=== PATIENT | female | born 1955 | race African-American/Black ===

== ENCOUNTER 2019-02-18 17:45 | Inpatient (IN) | payer MEDICAID, MEDICARE, OTHER ==
[~2019-02-18] VITALS: Ht 167.6 cm; Wt 72.6 kg
--- NOTE | 2019-02-18 18:40 | NUR ---
PT REFUSING BLOOD DRAW AND REFUSING TO PROVIDE URINE
--- NOTE | 2019-02-18 18:58 | NUR ---
REPORT GIVEN TO SHANNAN ANDERSON FOR JESSE
--- NOTE | 2019-02-18 19:10 | NUR ---
GPS/DOLLY DRIVER NOTES: ADMITTED [facility] TO [place] [facility] A 63 YEAR OLD FEMALE, BROUGHT IN BY ER STAFF AROUND 1910 VIA WHEELCHAIR. PATIENT IS ADMITTED ON 5150 HOLD FOR DTS/DTO/GD. PLACED PATIENT IN HER ROOM, PATIENT IS A/O X4, AMBULATORY, RESPIRATION EVEN, BREATHING PATTERN NON-LABORED, NO APPARENT DISTRESS NOTED. SHOWS NO S/S OF ANY PAIN OR DISCOMFORT. PATIENT IS VERY UNCOOPERATIVE, AGITATED, UNPREDICTABLE, YELLS AT STAFF, APPEARS DISHEVELED, UNKEMPT, MALODOROUS, POR HYGIENE REFUSED TO TAKE SHOWER, REFUSED SKIN ASSESSMENT, REFUSED PHOTO TAKEN. LIVES ALONE, NO RELATIVE TO BE NOTIFIED FO HER ADMISSION TO THE UNIT. PATIENT IS UNDER THE PSYCHIATRIC CARE OF DR. VAZQUEZ AND MEDICAL CARE OF LINDA RAYMUNDO. BELONGINGS INVENTORIED AND CHECKED FOR CONTRABAND. CHECKED FOR ENVIRONMENTAL SAFETY. PATIENT HAS NO MEDICATIONS, PATIENT IS HOMELESS. POLICE FOUND HER AND WAS TAKEN TO [facility]. BED LOCKED AND PLACED ON LOWEST POISTION FOR SAFETY. MRSA SCREEN DONE IN ER. WILL CONTINUE TO MONITOR Q 15 MINS. FOR SAFETY.
[2019-02-18] MEDS ORDERED: MAGNESIUM HYDROXIDE 30 ML UDC PO PRN (20:30)
[2019-02-18] MEDS ORDERED: ZOLPIDEM TARTRATE 5 MG TABLET PO PRN (20:30)
[2019-02-18] MEDS ORDERED: MAG HYDROX/AL HYDROX/SIMETH 30 ML UDC PO PRN (20:30)
[2019-02-18] MEDS ORDERED: ACETAMINOPHEN 325 MG TABLET PO PRN (20:30)
--- NOTE | 2019-02-18 23:15 | NUR ---
OFFERED PATIENT A SLEEPING PILL, PATIENT SAID, " I DON'T TAKE SLEEPING PIL."
--- NOTE | 2019-02-19 06:50 | NUR ---
REFUSED BLOOD DRAW, WILL COME BACK LATER.
[2019-02-19] MEDS ORDERED: OLANZAPINE 10 MG VIAL IM ONE (09:30)
--- NOTE | 2019-02-19 09:45 | NUR ---
GPS/RN-NOTES NOTED PATIENT YELLING AND SCREAMING USING FOUL LANGUAGES WITH STAFF AND ROOM MATE. DR. VAZQUEZ IN THE UNIT AND ORDERED ZYPREXA 10MG IM. ADMINISTERED AT RIGHT BUTTOCK ,WELL TOLERATED.
[2019-02-19] MEDS: busPIRone 5 MG TABLET PO SCH ×2 (12:09→17:07)
--- NOTE | 2019-02-19 13:27 | NUR ---
INITIAL DISCHARGE PLAN: Patient is homeless and wishes to be discharged to a homeless fci. SW will help form a safe and proper discharge in collaboration with MD.
--- NOTE | 2019-02-19 14:01 | NUR ---
UR NOTE: ROSEMARY contacted Pramod at [facility] [phone] after SW faxed H&P and medication list to [phone]. Pramod stated pt has been authorized 4 days 01/20/19-01/23/19 with review due 02/23/19. Pramod asked to fax clinicals and also provided ROSEMARY with case management coordinator information Anne [phone] and coordinator Stefania [phone] contact number. Pts authorization #: [id number].
[2019-02-19 14:24] LABS: BASOPHILS % (AUTO) 0.5 % (0.0-2.0); EOSINOPHILS % (AUTO) 2.4 % (0.0-6.0); HEMATOCRIT 35 % (33-45); HEMOGLOBIN 11.7 g/dL (11.5-14.8); LYMPHOCYTES # (AUTO) 3.4 /CMM (0.8-4.8); LYMPHOCYTES % (AUTO) 52.8 % (20.0-44.0); MEAN CORPUSCULAR HGB CONC 33 g/dl (31.0-36.0); MEAN CORPUSCULAR VOLUME 86 fL (82-100); MONOCYTES # (AUTO) 0.3 /CMM (0.1-1.30); MONOCYTES % (AUTO) 5.2 % (2.0-12.0); NEUTROPHILS # (AUTO) 2.5 /CMM (1.8-8.9); NEUTROPHILS % (AUTO) 39.1 % (43.0-81.0); PLATELET COUNT (AUTO) 213 /CMM (150-450); RED BLOOD CELL COUNT(AUTO) 4.11 MIL/uL (4.0-5.2); WHITE BLOOD COUNT (AUTO) 6.4 K/uL (4.3-11.0)
--- NOTE | 2019-02-19 14:43 | NUR ---
GROUP NOTE: Pt was prompted to participate in group, pt refused and was agitated using foul language.
[2019-02-19 14:48] LABS: ALBUMIN 2.8 g/dL (3.4-5.0); BILIRUBIN,TOTAL 0.3 mg/dL (0.2-1.0); CALCIUM, SERUM 8.8 mg/dL (8.5-10.1); CREATININE 0.8 mg/dL (0.6-1.3); TOTAL PROTEIN, SERUM 6.3 g/dL (6.4-8.2)
[2019-02-19 14:50] LABS: CHOLESTEROL 160 mg/dL (<200); HDL CHOLESTEROL 57 mg/dL (40-60); LDL 82 mg/dL (0-99); TRIGLYCERIDES 167 mg/dL (30-150)
[2019-02-19] MEDS: OLANZAPINE 5 MG TABLET PO SCH (17:07)
--- NOTE | 2019-02-19 18:48 | NUR ---
GPS/RN-NOTES NO URINE COLLECTED AT THIS TIME PATIENT AWARE BUT DID NOT PROVIDE THIS SHIFT. WILL ENDORSE TO INCOMING NURSE FOR FOLLOW UP AND CONTINUITY OF CARE.
[2019-02-19] MEDS: DIVALPROEX SODIUM 250 MG TABLET.DR PO SCH (21:03)
--- NOTE | 2019-02-20 03:29 | NUR ---
RN NOTES: -AT AROUND 2200 GIVEN SNACK PER REQUEST, TOOK HER MEDICATION ABLE TO SLEEP AND REST IN THE NIGHT. - SHE JUST WAKE UP ASSISTED TO THE BATHROOM,HER DIAPER IS WET, GOWN CHANGE AND BEDDINGS CHANGE.SHE WENT BACK TO BED READING HER NOTEBOOK.
[2019-02-20 08:00] VITALS: BP 158/68
[2019-02-20] MEDS: OLANZAPINE 5 MG TABLET PO SCH ×2 (09:23→17:00)
[2019-02-20] MEDS: DIVALPROEX SODIUM 250 MG TABLET.DR PO SCH ×2 (09:23→21:15)
[2019-02-20] MEDS: busPIRone 5 MG TABLET PO SCH ×3 (09:23→17:00)
--- NOTE | 2019-02-20 14:44 | NUR ---
Xiao MCKEON NP AND DR. TRUONG IN TO SEE PT.
--- NOTE | 2019-02-20 14:56 | NUR ---
REQUESTED TYLENOL FOR ABD. PAIN THEN REFUSED THE MED SHE DID NOT LIKE THE BRAND OR THE DOSE.
--- NOTE | 2019-02-20 17:00 | NUR ---
refused afternoon vital signs.still awaiting urine specimen.
--- NOTE | 2019-02-20 18:09 | NUR ---
mrsa smear sent from rt. nares.
[2019-02-20] MEDS: LORAZEPAM 0.5 MG TABLET PO PRN (19:27)
[2019-02-20 20:23] LABS: BILIRUBIN,URINE NEGATIVE (NEGATIVE); BLOOD, URINE TRACE-INTA Ery/uL (NEGATIVE); COLOR,URINE YELLOW (YELLOW); KETONES,URINE NEGATIVE (NEGATIVE); LEUKOCYTE ESTERASE ,URINE 3+ (NEGATIVE); NITRITE, URINE NEGATIVE (NEGATIVE); PROTEIN,URINE NEGATIVE (NEGATIVE); UGLUCOSE TRACE mg/dL (NEGATIVE); UROBILINOGEN,URINE 0.2 EU/dL (0.2)
--- NOTE | 2019-02-20 20:30 | NUR ---
GPS-RN PATIENT WAS NOTED ELEVATED BLOOD PRESSURE 204/100. ATTEMPTED TO RECHECK BUT PATIENT REFUSED. PAGED TO [facility] [facility], SPOKE WITH DR. RIVERA WITH NEW ORDER OF LISINOPRIL NOTED AND CARRIED OUT. 2199 - PATIENT REFUSED TO HAVE HER BLOOD PRESSURE TO BE RECHECKED. EXPLAINED TO PT THE RISKS AND BENEFITS, BUT PT STILL REFUSED.
[2019-02-20 20:37] LABS: APPEARANCE,URINE HAZY (CLEAR); BACTERIA,URINE Few /HPF (None Seen); SQUAMOUS EPITHELIAL CELL,UR Few /HPF (None Seen)
[2019-02-20] MEDS ORDERED: LISINOPRIL (20MG) 20 MG TABLET PO ONE (21:30)
--- NOTE | 2019-02-21 06:35 | NUR ---
GPS-RN PATIENT WAS NOTED WITH SCAB ON HER LEFT POSTERIOR LOWER LEG. PT REFUSED TO HAVE PHOTO TAKEN. EXPLAINED THE IMPORTANCE FOR SKIN ASSESSMENT OF HER POC BUT PT STILL REFUSED.
[2019-02-21] MEDS: OLANZAPINE 5 MG TABLET PO SCH ×2 (08:49→17:00)
[2019-02-21] MEDS: busPIRone 5 MG TABLET PO SCH ×3 (08:49→17:03)
[2019-02-21] MEDS: DIVALPROEX SODIUM 250 MG TABLET.DR PO SCH ×3 (08:49→20:53)
--- NOTE | 2019-02-21 09:00 | NUR ---
RN GPS NOTES PT AWAKE, ALERT AND ORIENTED, WALKS ALONG THE HALLWAY WITH STEADY GAIT, PT REFUSED VITAL SIGN CHECK, EXPLAINED RISKS OF NOT HAVING HER BLOOD PRESSURE CHECKED, STILL REFUSED AND STARTS TO GET ANGRY.
--- NOTE | 2019-02-21 10:27 | NUR ---
RN GPS NOTES VEDA MCKEON INFORMED OF PT'S REFUSALS OF BLOOD PRESSURE CHECKS, WILL CONTINUE TO EDUCATE AND MONITOR PT.
[2019-02-21] MEDS: LISINOPRIL (20MG) 20 MG TABLET PO SCH (11:23)
--- NOTE | 2019-02-21 18:09 | NUR ---
RN GPS NOTES PT AWAKE, ALERT, NOT IN PAIN, RESPIRATIONS NORMAL, TOLERATING CURRENT DIET, WITH GOOD PO INTAKE, STILL REFUSING VITAL SIGNS CHECK AND SOME MEDS MADE AWARE.
[2019-02-21] MEDS: CEPHALEXIN MONOHYDRATE 500 MG CAPSULE PO SCH (20:53)
[2019-02-21] MEDS: LORAZEPAM 0.5 MG TABLET PO PRN (21:14)
[2019-02-22 08:00] VITALS: BP 160/89
[2019-02-22] MEDS: CEPHALEXIN MONOHYDRATE 500 MG CAPSULE PO SCH ×2 (08:35→20:26)
[2019-02-22] MEDS: OLANZAPINE 5 MG TABLET PO SCH ×2 (08:36→17:05)
[2019-02-22] MEDS: busPIRone 5 MG TABLET PO SCH ×3 (08:36→17:04)
[2019-02-22] MEDS: LISINOPRIL (20MG) 20 MG TABLET PO SCH (08:36)
[2019-02-22] MEDS: DIVALPROEX SODIUM 250 MG TABLET.DR PO SCH ×3 (08:36→20:26)
--- NOTE | 2019-02-22 18:56 | NUR ---
GPS/RN-NOTES PATIENT STRONGLY REFUSED LAB DRAW DESPITE EXPLANATIONS RISK AND BENEFITS. ATTEMPTED BY LAB STAFF SEVERAL TIMES.CHARGE NURSE AWARE.
[2019-02-22 20:26] VITALS: BP 162/72
[2019-02-23 08:00] VITALS: BP 139/81
[2019-02-23] MEDS: busPIRone 5 MG TABLET PO SCH ×3 (08:24→17:58)
[2019-02-23] MEDS: CEPHALEXIN MONOHYDRATE 500 MG CAPSULE PO SCH ×2 (08:25→20:51)
[2019-02-23] MEDS: LISINOPRIL (20MG) 20 MG TABLET PO SCH (08:25)
[2019-02-23] MEDS: OLANZAPINE 5 MG TABLET PO SCH ×2 (08:25→17:58)
[2019-02-23] MEDS: LORAZEPAM 0.5 MG TABLET PO PRN (08:25)
[2019-02-23] MEDS: DIVALPROEX SODIUM 250 MG TABLET.DR PO SCH ×3 (08:25→20:50)
--- NOTE | 2019-02-23 10:02 | NUR ---
UR NOTE: ROSEMARY contacted outpatient case manager Anne [phone] who authorized 1 more day 02/23/19 with discharge tomorrow Friday02/24/19. Pts authorization #: [id number].
--- NOTE | 2019-02-23 13:26 | NUR ---
SW contacted [facility] Address: [address], [place] [address] and left Magdy, contractor field hauling a voicemail regarding a warm handoff.
--- NOTE | 2019-02-23 15:30 | NUR ---
SW contacted [facility] Address: [address] [place] [address] and was unable to leave a voicemail for callback as mailbox is full.
[2019-02-23 16:30] VITALS: BP 147/87
[2019-02-23 21:00] VITALS: BP 154/89
[2019-02-24 08:00] VITALS: BP 155/95
--- NOTE | 2019-02-24 08:27 | NUR ---
SW contacted [facility] Address: [address] [place] [address] and left a voicemail for callback.
--- NOTE | 2019-02-24 08:37 | NUR ---
SW contacted [facility] Address: [address] [place] [phone] and left a voicemail for callback.
[2019-02-24 09:05] VITALS: BP 155/95
[2019-02-24] MEDS: OLANZAPINE 5 MG TABLET PO SCH (09:05)
[2019-02-24] MEDS: LISINOPRIL (20MG) 20 MG TABLET PO SCH (09:05)
[2019-02-24] MEDS: CEPHALEXIN MONOHYDRATE 500 MG CAPSULE PO SCH (09:05)
[2019-02-24] MEDS: busPIRone 5 MG TABLET PO SCH ×2 (09:05→12:10)
[2019-02-24] MEDS: DIVALPROEX SODIUM 250 MG TABLET.DR PO SCH ×2 (09:05→12:10)
--- NOTE | 2019-02-24 10:48 | NUR ---
SW contacted [facility] Address: [address] [place] [address] and spoke with Ousmane, who stated they currently do not have any beds available.
--- NOTE | 2019-02-24 10:52 | NUR ---
SW contacted [facility] Address: [address] [place] [address] and was unable to leave a voicemail for callback as mailbox is full.
--- NOTE | 2019-02-24 10:56 | NUR ---
SW contacted [facility] Address: [address], [place] [address] and no one is available to take the call.
--- NOTE | 2019-02-24 11:01 | NUR ---
ROSEMARY called [facility] [address] [place] [address] and spoke with Polly who stated there aren't any beds available on this present day.
--- NOTE | 2019-02-24 11:11 | NUR ---
SW contacted [facility] Address: [address] [place] [phone] and spoke with Viola who stated they have a one month waiting list for a female bed.
--- NOTE | 2019-02-24 11:12 | NUR ---
ROSEMARY contacted [facility] Address: [address], [place], [place] and spoke with Dede who stated they do not have female beds available on this present day.
--- NOTE | 2019-02-24 11:16 | NUR ---
SW contacted [facility] [phone] and spoke with Mel who stated there are no female beds open.
--- NOTE | 2019-02-24 11:26 | NUR ---
SW contacted [facility] Address: [address] [place] [phone] who stated they do not have beds open.
--- NOTE | 2019-02-24 11:55 | NUR ---
UR NOTE/SNF REFERRALS: SW contacted [facility] case briefer Stefania [phone] and informed her SW has been unsuccessful in finding a bed in a snf for pt and needs assistance with discharge. Stefania provided SW with [facility] Address: [address] [place] [address] and [facility] Address: [address] [place] [address] and asked ROSEMARY to fax referrals for possible short term placement. ROSEMARY faxed referrals for review. Stefania stated that she will also assist SW with placement.
--- NOTE | 2019-02-24 13:04 | NUR ---
SW received a call from Justina, hr coordinator at [facility] Address: [address] [place] [address] and Josie, hr coordinator at [facility] Address: [address] [place] [address] stating pt was not accepted due to her mental illness.
--- NOTE | 2019-02-24 13:06 | NUR ---
DISCHARGE NOTE: Pt is being discharged to [facility] Address: [address] [place] [address] via public [address] (TAP CARD). Pt signed homeless waiver and was provided with a homeless resource packet and directions to get to the [facility] from the hospital. Pts mood was irritable with congruent affect. Pt denied suicidal/homicidal ideation and denied visual/auditory hallucinations. Pt was provided with a referral to [address] [address] and [facility] [address] [facility] [address]. [phone] and she was encouraged to present herself on 02/25/19 at 9:00am for an intake. For smoking cessation, patient was referred to the [employer] and [employer] [id number]. Pt will also participate in a telephone meeting with [employer] [phone] on 02/25/19 at 8:00am. The multidisciplinary exitcare form was done, printed, signed, and given to the patient.
--- NOTE | 2019-02-24 13:15 | NUR ---
GPS/RN-NOTES PATIENT DISCHARGE TO [facility] TODAY. AND JOANA PABLO AWARE AND AGREED OF THE DISCHARGE WITH ORDERS. PATIENT REFUSED TO SIGN DISCHARGE PAPERS AND REFUSED BODY ASSESSMENT DESPITE EXPLANATIONS HOSPITAL POLICIES.ALL DISCHARGE MEDICATIONS WAS REVIEWED WITH PATIENT WITH UNDERSTANDING. RX WAS GIVEN TO THE PATIENT. PATIENT DID NOT VERBALIZE SI/HI,DENIES VISUAL/AUDITORY HALLUCINATIONS AT THE TIME OF DISCHARGE. PATIENT LEFT THE UNIT IN STABLE CONDITION ALERT ORIENTED X3 AMBULATORY WITH STEADY GAIT. PATIENT WAS ASSISTED BY ONE [employer] AND STUD MACHINE OPERATOR STAFF TO THE BUS STOP FOR SAFETY. PATIENT LEFT WITH ALL BELONGINGS.NO FAMILY TO NOTIFY OF THE DISCHARGE.
--- NOTE | 2019-02-26 08:17 | NUR ---
UR NOTE/SNF REFERRALS: SW contacted [facility] case hardener Stefania [phone] and left a voicemail informing her pt was discharged on 02/24/19 to a hotel.
--- NOTE | 2019-02-26 11:29 | NUR ---
UR NOTE: ROSEMARY faxed clinicals and discharge summary to [facility] Stefania [phone] . authorization #: [id number].
== END 2019-02-24 13:15 | disposition home or self-care (01) | DRG 885 ==
LOC: ER 17:56 → GPS 19:00
PROVIDERS: ADMIT Psychiatry & Neurology Psychiatry; ATTEND Nurse Practitioner Acute Care
DX: F25.0 Schizoaffective disorder, bipolar type (principal); E44.0 Moderate protein-calorie malnutrition; N39.0 Urinary tract infection, site not specified; F29 Unspecified psychosis not due to a substance or known physiological condition; E88.09 Other disorders of plasma-protein metabolism, not elsewhere classified; I10 Essential (primary) hypertension; E86.0 Dehydration; Z68.25 Body mass index [BMI] 25.0-25.9, adult; E11.9 Type 2 diabetes mellitus without complications
CPT/HCPCS: 36415; 80053-TC; 80061-TC; 80305; 81000-TC; 85025-TC; 87081-TC; 87086-TC; J3490